=== PATIENT | male | born 1995 ===

== ENCOUNTER 2017-06-27 20:43 | Emergency (ER) | payer SELFPAY ==
[2017-06-27 20:48] VITALS: BP 148/89; TEMP 98
[2017-06-27 21:54] LABS: BASO # 0.1 K/uL (0.0-0.2); EOS # 0.1 K/uL (0.0-0.7); EOS % 1.2 % (0.0-4.0); HEMATOCRIT 45.5 % (35.0-51.0); LYMPH # 2.6 K/uL (1.0-4.3); LYMPH % 26.3 % (20.0-40.0); MEAN CELL VOLUME 91.3 fl (80.0-94.0); MEAN CORPUSCULAR HEMOGLOBIN 31.3 pg (27.0-31.0); MEAN CORPUSCULAR HGB CONC 34.3 g/dL (33.0-37.0); MEAN PLATELET VOLUME 7.1 fl (7.2-11.7); MONO # 0.9 K/uL (0.0-0.8); MONO % 8.6 % (0.0-10.0); NEUT # 6.3 K/uL (1.8-7.0); NEUT % 62.9 % (50.0-75.0); NRBC % 0.1 % (0.0-0.0); RED CELL DISTRIBUTION WIDTH 13.3 % (11.5-14.5); WHITE BLOOD COUNT 10.1 K/uL (4.8-10.8)
[2017-06-27 22:04] LABS: ALB/GLOB RATIO 1.4 (1.0-2.1); ALKALINE PHOSPHATASE 131 U/L (38-126); ALT/SGPT 87 U/L (21-72); AST/SGOT 86 U/L (17-59); BILIRUBIN,TOTAL 0.4 mg/dl (0.2-1.3); BLOOD UREA NITROGEN 15 mg/dl (9-20); CALCIUM 9.4 mg/dL (8.4-10.2); CARBON DIOXIDE 21 mmol/L (22-30); CHLORIDE 109 mmol/L (98-107); GFR AFRICAN-AMERICAN > 60; GLUCOSE,RANDOM 113 mg/dL (75-110); MAGNESIUM 2.4 MG/DL (1.6-2.3); PHOSPHOROUS 4.5 mg/dl (2.5-4.5); POTASSIUM 3.5 MMOL/L (3.6-5.0); SODIUM 150 mmol/l (132-148); TOTAL PROTEIN 8.2 G/DL (6.3-8.2)
[2017-06-27 22:36] LABS: ALCOHOL SERUM 433 mg/dl (0-10)
--- NOTE | 2017-06-27 22:41 | ED PDOC ---
HPI: Psych/Substance Abuse Time Seen by Provider: 06/27/17 20:49 Chief Complaint (Nursing): Alcohol Ingestion Chief Complaint (Provider): Altered Mental Status ED Caveat: Intoxicated History Per: EMS History/Exam Limitations: intoxication Onset/Duration Of Symptoms: Hrs Current Symptoms Are (Timing): Still Present Suicide/Self Injury Attempted (Context): None Additional Complaint(s): oJhn Diaz, a 22 year old male, is brought into the ED by EMS after [place] [employer] found his friends trying to carry him into an uber. Friends did not give history and did not come to ED with the patient. Patient cannot give history due to intoxicated state. Concerned for alcohol and/or drug intoxication. Past Medical History Reviewed: Historical Data, Nursing Documentation, Vital Signs Vital Signs: Last Vital Signs Temp 98.0 F 06/27/17 20:45 Pulse 124 H 06/27/17 20:45 Resp 16 06/27/17 20:45 BP 148/89 06/27/17 20:45 Pulse Ox 99 06/27/17 20:45 - Allergies Allergies/Adverse Reactions: Allergies Allergy/AdvReac Type Severity Reaction Status Date / Time No Known Allergies Allergy Verified 06/27/17 20:45 Review of Systems Review Of Systems: ROS cannot be obtained secondary to pt's inabilty to answer questions. (unable to obtain due to patients intoxicated state) - Laboratory Results Result Diagrams: 06/27/17 21:50 06/27/17 21:50 - ECG O2 Sat by Pulse Oximetry: 99 (RA) Pulse Ox Interpretation: Normal Medical Decision Making Medical Decision Makin Initial Impression 22 y/o male presenting with altered mental status Differentials: Drug intoxication, Alcohol dehydration, Electrolyte abnormality Initial Plan: * Alcohol Serum * CMP * Drug Screen * Magnesium * Phosphorous * Udip * CBC * Ativan 2mg IM * Dextrose * Reevaluation Scribe Attestation Documented by Jeanna Sy acting as a scribe for Cindy Enriquez MD. Provider Attestation All medical record entries made by the Scribe were at my direction and personally dictated by me. I have reviewed the chart and agree that the record accurately reflects my personal performance of the history, physical exam, medical decision making, and the department course for this patient. I have also personally directed, reviewed, and agree with the discharge instructions and disposition. Disposition - Patient ED Disposition Is Patient to be Admitted: Transfer of Care - Disposition Disposition: Transfer of Care Disposition Time: 00:00 Condition: STABLE Forms: [facility] (Chinese) Patient Signed Over To: Franco Lassiter Handoff Comments: Pending clinical sobreity and final disposition
--- NOTE | 2017-06-28 00:03 | ED PDOC ---
- Laboratory Results Result Diagrams: 06/27/17 21:50 06/27/17 21:50 - ECG O2 Sat by Pulse Oximetry: 99 (RA) Pulse Ox Interpretation: Normal Medical Decision Making Medical Decision Making: Receiving sign out: Patient signed out to me by at 0000 pending clinical sobriety and final disposition. Scribe Attestation: Documented by Cinthia Zapata acting as a scribe for Franco Lassiter MD. Provider Attestation: All medical record entries made by the Scribe were at my direction and personally dictated by me. I have reviewed the chart and agree that the record accurately reflects my personal performance of the history, physical exam, medical decision making, and the department course for this patient. I have also personally directed, reviewed, and agree with the discharge instructions and disposition. Disposition - Clinical Impression Clinical Impression: Alcohol abuse - POA Present On Arrival: None - Disposition Referrals: Alcoholics Anonymous [Outside] Disposition: Routine/Home Disposition Time: 03:52 Condition: STABLE Instructions: Alcohol Intoxication (ED) Forms: [facility] (Romanian) Progress Note - Review of Symptoms Events since last encounter: 0000 Patient resting in room, no acute distress. 0130 Patient resting comfortably; no acute distress. 0300 Patient resting; no distress. 0351 Patient awake, alert and oriented with steady gait. Patient stable for discharge home.
[2017-06-28 00:40] VITALS: PULSE 82; RESP 19
[2017-06-28 02:13] VITALS: O2SAT 99
== END 2017-06-28 04:49 | disposition home or self-care (01) ==
LOC: H.ER 20:43 → EDBD 20:43 → H.ER 06-28 04:49
DX: F10.129 Alcohol abuse with intoxication, unspecified (principal)
CPT/HCPCS: 80053; 82948; 83735; 84100; 85025; 96372; 99284; G0480; J2060; J7042